=== PATIENT | female | born 1975 | race Caucasian/White ===

== ENCOUNTER 2017-07-06 16:47 | Emergency (ER) | payer MEDICARE ==
[2014-08-07 06:40] VITALS: BMI 40.1
[~2017-07-06 16:47] MED LIST: BUPROPION XL300 MG PO; LATUDA40 MG PO; XANAX2 MG PO
== END 2017-07-06 21:58 | disposition home or self-care (01) ==
LOC: D.ER 16:47
DX: S16.1XXA Strain of muscle, fascia and tendon at neck level, initial encounter (principal); V43.52XA Car driver injured in collision with other type car in traffic accident, initial encounter; Y93.89 Activity, other specified; Y92.410 Unspecified street and highway as the place of occurrence of the external cause; S39.012A Strain of muscle, fascia and tendon of lower back, initial encounter; I10 Essential (primary) hypertension; E11.9 Type 2 diabetes mellitus without complications

== ENCOUNTER → 2018-10-20 16:24 | Outpatient (CLI) | payer MEDICARE ==
[2014-08-07 06:40] VITALS: BMI 40.1
== END | disposition home or self-care (01) ==
LOC: D.MAMMO 16:00
PROVIDERS: ATTEND Family Medicine
DX: Z12.31 Encounter for screening mammogram for malignant neoplasm of breast (principal)

== ENCOUNTER 2019-03-25 21:26 | Emergency (ER) | payer MEDICARE ==
[~2019-03-25] VITALS: Ht 152.4 cm; Wt 90.7 kg
[2019-03-25 21:30] VITALS: Ht 152.4 cm; Wt 90.7 kg
[2019-03-25] MEDS ORDERED: TRESIBA FL100 UNIT/1 (21:33)
[2019-03-25] MEDS ORDERED: NEURONTIN 300300 MG PO (21:33)
[2019-03-25] MEDS ORDERED: NORA-BE0.35 MG (21:34)
[2019-03-25] MEDS ORDERED: NYSTATIN OINTME15 GM TOPICAL (21:34)
[2019-03-25] MEDS ORDERED: VALIUM 2 MG TAB2 MG PO (22:35)
[2019-03-25] MEDS ORDERED: EC-NAPROSYN500 MG PO (22:35)
[2019-03-25 23:02] VITALS: BP 132/79
== END 2019-03-25 23:03 | disposition home or self-care (01) ==
LOC: D.ER 21:26
DX: S20.211A Contusion of right front wall of thorax, initial encounter (principal); R07.81 Pleurodynia; W01.0XXA Fall on same level from slipping, tripping and stumbling without subsequent striking against object, initial encounter; E11.9 Type 2 diabetes mellitus without complications

== ENCOUNTER → 2019-09-09 12:51 | Outpatient (CLI) | payer MEDICARE ==
[2019-03-25 21:30] VITALS: BMI 40.1
[~2019-09-09 12:51] MED LIST changes: +EC-NAPROSYN500 MG PO; +NEURONTIN 300300 MG PO; +NORA-BE0.35 MG; +NYSTATIN OINTME15 GM TOPICAL; +TRESIBA FL100 UNIT/1; +VALIUM 2 MG TAB2 MG PO
== END | disposition home or self-care (01) ==
LOC: D.US 12:51
PROVIDERS: ATTEND Family Medicine
DX: R79.1 Abnormal coagulation profile (principal); M79.606 Pain in leg, unspecified

== ENCOUNTER 2020-01-02 19:00 | Outpatient (CLI) | payer MEDICARE ==
[2019-03-25 21:30] VITALS: BMI 40.1
== END 2020-01-02 23:59 | disposition home or self-care (01) ==
LOC: D.MAMMO 19:00
PROVIDERS: ATTEND Family Medicine
DX: Z12.31 Encounter for screening mammogram for malignant neoplasm of breast (principal)

== ENCOUNTER → 2020-12-14 13:38 | Outpatient (CLI) | payer MEDICARE, OTHER ==
[2019-03-25 21:30] VITALS: BMI 40.1
== END | disposition home or self-care (01) ==
LOC: D.MRI 13:38
PROVIDERS: ATTEND Clinical Nurse Specialist Family Health
DX: M25.571 Pain in right ankle and joints of right foot (principal)

== ENCOUNTER → 2021-01-07 10:15 | Outpatient (CLI) | payer MEDICARE, OTHER ==
[2019-03-25 21:30] VITALS: BMI 40.1
== END | disposition home or self-care (01) ==
LOC: D.MAMMO 10:15
PROVIDERS: ATTEND Nurse Practitioner
DX: Z12.31 Encounter for screening mammogram for malignant neoplasm of breast (principal)